=== PATIENT | female | born 1965 ===

== ENCOUNTER 2016-09-16 20:53 | Emergency (ER) | payer OTHER ==
[2016-09-16] MEDS ORDERED: ONDANSETRON HCL 4 MG/2 ML VIAL ONE (21:18)
[2016-09-16] MEDS ORDERED: ONDANSETRON ODT PREPAC 4 MG TAB.RAPDIS PO ONE (22:12)
[2016-09-16] MEDS ORDERED: IBUPROFEN 600 MG TABLET PO ONE (22:12)
--- NOTE | 2016-09-16 22:16 | ER PHYSICIAN DOCUMENTATION ---
Physician Documentation [facility], [place] Name:Ama Dominique Age:51 yrs Sex:Female :1965 Arrival Date:09/16/2016 Time:20:53 Bed3 Private MD:Physician, No ED Samuel Gill Disposition: 09/16/16 21:48 Discharged to Home/Self Care. Impression: Vomiting - Dehydration - : Secondary to Altitude Illness. - Condition is Good. - Discharge Instructions: DEHYDRATION (6y-Adult), VOMITING (6y-Adult). - Medical Reconciliation form form. - Follow up: Private Physician; When: 7 - 10 days; Reason: Recheck today's complaints, Continuance of care. - Problem is new. - Symptoms are resolved. - Notes: Take Zofran 4mg under your tongue every 6 hours as needed for nausea or vomiting. Drink 2 quarts of water every day. Do not go to higher elevation. Avoid alcohol. Rest. Tylenol for headaches. HPI: 09/16 21:00 This 51 yrs old /[place] Female presents to ER via Walk In with complaints cd of Nausea/Vomiting, Dizziness. 21:00 The patient presents to the emergency department with nausea, that is moderate, with cd vomiting, a few times, described as clear fluid, without any complaints of abdominal pain. Onset: The symptom(s)/episode began/occurred acutely, today. Possible causes: travel, patient flew in from [place] today. Had a low grade fever on the plane. Developed a headache, nausea and vomiting on arrival to 8,000 feet elevation. She denies sore throat, earaches, neck stiffness, URI, cough, SOB, Abdominal pain or UTI symptoms.. Associated signs and symptoms: Pertinent positives: anorexia, fever, Pertinent negatives: abdominal pain, diarrhea, dysuria, nausea, vomiting. Severity of symptoms: At their worst the symptoms were moderate in the emergency department the symptoms are unchanged. The patient has not experienced similar symptoms in the past. Historical: - Allergies: Flagyl; - Home Meds: 1. None - PMHx: None; - PSHx: Knee surgery; - Tetanus: > 10 years. - Ebola Screening: : Patient denies exposure to infectious person. Patient denies travel to an Ebola-affected area in the 21 days before illness onset. . - Immunization history: Flu Vaccine None. - Social history: Smoking status: Patient states was never smoker of tobacco. Patient/guardian denies using alcohol. - Code Status:: Full code. ROS: 21:25 ENT: Negative for injury, pain, epistaxis and discharge. cd Cardiovascular: Negative for chest pain, palpitations, edema and pleuritic pain. Respiratory: Negative for shortness of breath, dyspnea on exertion, cough, sputum production, wheezing, hemoptysis and pleuritic chest pain. Back: Negative for injury, pain or muscle spasms. : Negative for injury, bleeding, discharge, dysuria, frequency, urgency and swelling. MS/Extremity: Negative for injury, deformity, edema, calf tenderness, pain or coldness. Skin: Negative for injury, rash, itching and discoloration. 21:25 Neuro: Negative for headache, weakness, numbness, tingling, and seizure. cd 21:25 Constitutional: Positive for fever, poor PO intake, Negative for chills. 21:25 Abdomen/GI: Positive for nausea, vomiting, anorexia, Negative for abdominal pain, diarrhea, abdominal distension, hematemesis, black/tarry stool, rectal bleeding. 21:25 All other systems are negative. Exam: Head/Face: Normocephalic, atraumatic. Eyes: Pupils equal round and reactive to light, extra-ocular motions intact. Lids and lashes normal. Conjunctiva and sclera are non-icteric and not injected. Cornea within normal limits. Periorbital areas with no swelling, redness, or edema. 21:25 ENT: Nares patent. No nasal discharge, no septal abnormalities noted. Tympanic cd membranes are normal and external auditory canals are clear. Oropharynx with no redness, swelling, or masses, exudates, or evidence of obstruction, uvula midline. Mucous membranes dry 21:25 Constitutional: The patient appears alert, awake, non-diaphoretic, non-toxic, well developed, well nourished, anxious. 21:25 Cardiovascular: Rate: normal, Rhythm: regular, Pulses: no pulse deficits are appreciated, Heart sounds: normal. 21:25 Respiratory: the patient does not display signs of respiratory distress, Respirations: normal, no acute changes, Breath sounds: are normal, clear throughout. 21:25 Abdomen/GI: Inspection: abdomen appears normal, Bowel sounds: normal, Palpation: abdomen is soft and non-tender. 21:25 Back: Exam negative for acute changes. 21:25 Skin: Exam negative for acute changes. 21:25 Neuro: Exam negative for acute changes, Orientation: is normal, Mentation: is normal. Vital Signs: 21:22 BP 166 / 101; Pulse 88; Resp 15; Temp 98.4(O); Pulse Ox 94% on R/A; Weight 42.18 kg; lb Height 4 ft. 11 in. (149.86 cm); Pain 8/10; 22:01 BP 141 / 93; Pulse 73; Resp 14; Pulse Ox 100% on 2 lpm NC; Pain 0/10; lb 22:15 BP 141 / 93; Pulse 76; Resp 14; Pulse Ox 97% on R/A; Pain 0/10; lb 21:22 Body Mass Index 18.78 (42.18 kg, 149.86 cm) lb MDM: 21:25 Differential diagnosis: gastroenteritis, Dehydration, Altitude Illness, Viral Illness. cd Data reviewed: vital signs, nurses notes, old medical records, and as a result, I will discharge patient, administer IV fluids, NS bolus. Data interpreted: Pulse oximetry: on room air is 93 %. Interpretation: normal. 21:48 Patient medically screened. cd 21:50 Counseling: I had a detailed discussion with the patient and/or guardian regarding: the cd historical points, exam findings, and any diagnostic results supporting the discharge/admit diagnosis, the need for outpatient follow up, for a recheck, with the patient's primary care provider, to return to the emergency department if symptoms worsen or persist or if there are any questions or concerns that arise at home. Response to treatment: the patient's symptoms have markedly improved after treatment, the patient's symptoms have resolved after treatment, the patient's condition has returned to base line, the patient is now symptom free, patient is well hydrated. and as a result, I will discharge patient. 09/16 21:08 Order name: Iv Saline Lock; Complete Time: 21:08 lb Dispensed Medications: 21:08 Drug: NS 0.9% 1000 ml; Route: IV; Rate: bolus; Site: left antecubital; lb 21:57 Follow up: IV Status: Completed infusion; IV Intake: 1000ml lb 21:08 Drug: Zofran 4 mg; Route: IVP; Infused Over: 2 mins; Site: left antecubital; lb 21:57 Follow up: Response: Nausea is decreased lb 22:14 Drug: Ibuprofen 600 mg; Route: PO; lb 22:14 Follow up: Response: Dispensed at discharge. lb 22:14 Drug: Zofran 1 tablet; Route: PO; lb 22:14 Follow up: Response: Pharmacy closed - take home med pack lb Signatures: Samuel Thao MD MD cd Bollock, Lynda lb
--- NOTE | 2016-09-16 22:16 | ER NURSING DOCUMENTATION ---
Nurse's Notes [facility] Name:Ama Dominique Age:51 yrs Sex:Female :1965 Arrival Date:09/16/2016 Time:20:53 Bed3 Private MD:Physician, No Diagnosis:Vomiting - Dehydration-: Secondary to Altitude Illness Presentation: 09/16 21:01 Acuity: DEVIN 3 lb 21:09 Presenting complaint: Patient states: came to [place] today from [place], c/o nausea, lb vomiting, unable to keep anything down. also with headache and states fever. Transition of care: patient was not received from another setting of care. Notified ED Physician of Dr. Thao notified. 21:09 Method Of Arrival: Walk In lb Triage Assessment: 21:21 General: Appears distressed, Behavior is appropriate for age, pleasant. Pain: Complains lb of pain in face Pain does not radiate. Pain currently is 8 out of 10 on a pain scale. GI: Abdomen is flat, non- distended Bowel sounds present X 4 quads. Reports nausea, vomiting. Historical: - Allergies: Flagyl; - Home Meds: 1. None - PMHx: None; - PSHx: Knee surgery; - Tetanus: > 10 years. - Ebola Screening: : Patient denies exposure to infectious person. Patient denies travel to an Ebola-affected area in the 21 days before illness onset. . - Immunization history: Flu Vaccine None. - Social history: Smoking status: Patient states was never smoker of tobacco. Patient/guardian denies using alcohol. - Code Status:: Full code. Screenin:23 Infectious Disease Risk None. Abuse screen: Denies threats or abuse. Denies injuries lb from another. Nutritional screening: No deficits noted. Assessment: 21:23 See Triage Assessment done by same RN. GI: Reports nausea, vomiting. lb Vital Signs: 21:22 BP 166 / 101; Pulse 88; Resp 15; Temp 98.4(O); Pulse Ox 94% on R/A; Weight 42.18 kg; lb Height 4 ft. 11 in. (149.86 cm); Pain 8/10; 22:01 BP 141 / 93; Pulse 73; Resp 14; Pulse Ox 100% on 2 lpm NC; Pain 0/10; lb 22:15 BP 141 / 93; Pulse 76; Resp 14; Pulse Ox 97% on R/A; Pain 0/10; lb 21:22 Body Mass Index 18.78 (42.18 kg, 149.86 cm) lb ED Course: 20:53 Patient arrived in ED. ma1 20:53 Physician, Angeline is Private Physician. ma1 21:01 Margret Cuadra is Primary Nurse. lb 21:03 Triage completed. lb 21:21 Inserted peripheral IV: 20 gauge in left antecubital area and blood collected. sj 21:23 Valuables Remains with patient Patient has correct armband on for positive lb identification. Bed in low position. 21:48 Samuel Thao MD is Attending Physician. cd Administered Medications: 21:08 Drug: NS 0.9% 1000 ml; Route: IV; Rate: bolus; Site: left antecubital; lb 21:57 Follow up: IV Status: Completed infusion; IV Intake: 1000ml lb 21:08 Drug: Zofran 4 mg; Route: IVP; Infused Over: 2 mins; Site: left antecubital; lb 21:57 Follow up: Response: Nausea is decreased lb 22:14 Drug: Ibuprofen 600 mg; Route: PO; lb 22:14 Follow up: Response: Dispensed at discharge. lb 22:14 Drug: Zofran 1 tablet; Route: PO; lb 22:14 Follow up: Response: Pharmacy closed - take home med pack lb Intake: 21:57 IV: 1000ml; Total: 1000ml. lb Outcome: 21:48 Discharge ordered by . cd 22:15 Discharged to home ambulatory. lb 22:15 Condition: good 22:15 Discharge Assessment: Patient awake, alert and oriented x 3. No cognitive and/or functional deficits noted. Patient verbalized understanding of disposition instructions. 22:15 Instructed on discharge instructions, follow up and referral plans. 22:15 IV D/Adin 22:15 Patient left the ED. lb Signatures: Samuel Thao MD MD cd Janzen, Sarah sj Bollock, Lynda Jana Stewart paJuany
== END 2016-09-16 22:16 | disposition home or self-care (01) ==
LOC: ER 20:53
DX: E86.0 Dehydration (principal); R11.2 Nausea with vomiting, unspecified; R50.9 Fever, unspecified; T70.29XA Other effects of high altitude, initial encounter
CPT/HCPCS: 96361; 96374; 99283; J2405